=== PATIENT | female | born 1945 | race Hispanic/Latino ===

== ENCOUNTER 2023-09-27 12:36 | Emergency (ER) | payer MEDICARE ==
[~2023-09-27] VITALS: Ht 157.5 cm; Wt 76.2 kg
[2023-09-27 13:27] LABS: BASOPHILS # (AUTO) 0.02 K/uL (0.00-0.20); BASOPHILS % (AUTO) 0.3 % (0.0-5.0); EOSINOPHILS # (AUTO) 0.38 K/uL (0.00-0.70); EOSINOPHILS % (AUTO) 4.8 % (0.0-8.0); IMMATURE GRANULOCYTE ABSOLUTE 0.04 K/uL (0-1); LYMPHOCYTES # (AUTO) 3.2 K/uL (1.0-4.8); LYMPHOCYTES % (AUTO) 40.3 % (21.0-51.0); MEAN CORPUSCULAR HEMOGLOBIN 32.7 pg (27.0-33.0); MEAN CORPUSCULAR HGB CONC 33.5 g/dL (32.0-36.0); MEAN CORPUSCULAR VOLUME 97.5 fL (79-99); MONOCYTES # (AUTO) 0.4 K/uL (0.1-1.0); MONOCYTES % (AUTO) 5.3 % (3.0-13.0); NEUTROPHILS # (AUTO) 3.8 K/uL (1.8-7.7); NEUTROPHILS % (AUTO) 48.8 % (40.0-77.0); PLATELET COUNT (AUTO) 238 K/uL (130-400); RED BLOOD CELL COUNT(AUTO) 4.41 MIL/uL (4.00-5.50); RED CELL DISTRIBUTION WIDTH 12.9 % (11.0-15.5); WHITE BLOOD COUNT (AUTO) 7.9 K/uL (4.8-10.8)
[2023-09-27 13:31] LABS: APPEARANCE,URINE CLOUDY (CLEAR); BILIRUBIN,URINE NEGATIVE (NEGATIVE); COLOR,URINE LIGHT-YELLOW (YELLOW); GLUCOSE, URINE (UA) NEGATIVE (NEGATIVE); KETONES,URINE NEGATIVE (NEGATIVE); LEUKOCYTE ESTERASE ,URINE NEGATIVE Leu/uL (NEGATIVE); NITRATE,URINE NEGATIVE (NEGATIVE); OCCULT BLOOD,URINE NEGATIVE (NEGATIVE); PROTEIN,URINE NEGATIVE (NEGATIVE); UROBILINOGEN,URINE 0.2 mg/dL (0.2-1.0)
[2023-09-27 13:32] LABS: ADD UA MICROSCOPIC YES
[2023-09-27 13:36] LABS: BACTERIA,URINE MANY /HPF (None Seen); SQUAMOUS EPITHELIAL CELL,UR MANY /HPF (0-2)
[2023-09-27 13:37] LABS: CREATININE 0.8 mg/dL (0.5-1.0); POTASSIUM 3.5 mmol/L (3.5-5.1)
[2023-09-27 13:45] LABS: ALBUMIN 3.4 g/dL (3.5-5.0); BILIRUBIN,TOTAL 0.5 mg/dL (0.2-1.0); TOTAL PROTEIN, SERUM 7.2 g/dL (6.0-8.3)
[2023-09-27] MEDS: DICYCLOMINE HCL 10 MG/5 ML ML PO ONE (14:52)
[2023-09-27] MEDS: MAG/ALUM/SIMETH 30 ML UDCUP PO ONE (14:52)
[2023-09-27] MEDS: FAMOTIDINE 20MG VIAL IV ONE (14:52)
[2023-09-27] MEDS: ONDANSETRON 4MG INJ IVP ONE (14:52)
[2023-09-27 14:53] VITALS: BP 173/78; PULSE 59; RESP 16; O2SAT 100
[2023-09-27] MEDS ORDERED: AMOX1TAB16 PO (15:09)
[2023-09-27] MEDS ORDERED: ONDA-243 PO (15:09)
[2023-09-27] MEDS ORDERED: FAMO-136 PO (15:09)
[2023-09-27] MEDS: KETOROLAC 15MG/ML VIAL (15MG/ML) IV ONE (15:17)
== END 2023-09-27 15:27 | disposition home or self-care (01) ==
LOC: EDH 12:36
DX: K57.92 Diverticulitis of intestine, part unspecified, without perforation or abscess without bleeding (principal); I10 Essential (primary) hypertension; Z90.710 Acquired absence of both cervix and uterus
CPT/HCPCS: 99284; 96374; 96375; 80053; 83690; 85025; 87086; 81001; 36415; J3490; J2405; J1885